=== PATIENT | female | born 1950 | race Caucasian/White ===

== ENCOUNTER 2023-04-19 05:25 | Emergency (ER) | payer MEDICARE, MEDICAID ==
[~2023-04-19] VITALS: Ht 160 cm; Wt 81.8 kg
[2023-04-19 05:29] VITALS: BP 153/115
== END 2023-04-19 08:41 | disposition left against medical advice (07) ==
LOC: ER 05:27
DX: M79.601 Pain in right arm (principal); Z53.21 Procedure and treatment not carried out due to patient leaving prior to being seen by health care provider
CPT/HCPCS: 73110; 73130; 99281